=== PATIENT | male | born 1970 ===

== ENCOUNTER 2021-01-25 13:09 | Outpatient (CLI) | payer MEDICAID ==
[~2021-01-25] VITALS: Ht 185.4 cm; Wt 96.2 kg
[2021-01-25 13:34] VITALS: BP 155/96
--- NOTE | 2021-01-25 15:14 | Consultation ---
DATE OF CONSULTATION: 01/25/2021 CHIEF COMPLAINT: Referral for screening colonoscopy. PAST MEDICAL HISTORY: None. PAST SURGICAL HISTORY: None. MEDICATIONS: None. FAMILY HISTORY: Father had colon cancer at age 60. Mother had breast cancer. SOCIAL HISTORY: The patient occasionally drinks alcohol. Denies any tobacco or IV drug abuse. ALLERGIES: No known allergies. REVIEW OF SYSTEMS: Negative. PHYSICAL EXAMINATION: VITAL SIGNS: Temperature 97.6, blood pressure 155/96, pulse 88, respirations 20. Height 6 feet 1 inch, weight is 212. HEENT: Normocephalic and atraumatic. Sclerae anicteric. NECK: Supple. No evidence of obvious lymphadenopathy. CARDIOVASCULAR: Regular rate and rhythm. Plus S1, S2. LUNGS: Clear to auscultation bilaterally. ABDOMEN: Positive bowel sounds. Soft and nontender. No rebound. No guarding. No peritoneal sign. EXTREMITIES: No cyanosis, no clubbing, no edema. ASSESSMENT AND PLAN: This is a 50-year-old male needs a screening colonoscopy. The patient was given instruction for colonoscopy. Risks and benefits of procedure was explained to him. We will schedule him as soon as authorization is obtained. Gerber Fuller M.D. DR: Kika JOB#: [id number] CC:
== END 2021-01-25 15:09 | disposition home or self-care (01) ==
LOC: PAN 13:09
DX: Z00.00 Encounter for general adult medical examination without abnormal findings (principal); Z80.0 Family history of malignant neoplasm of digestive organs
CPT/HCPCS: 99203